=== PATIENT | female | born 1955 ===

== ENCOUNTER 2017-02-01 07:03 | Day surgery (SDC) | payer OTHER ==
[2017-02-01] MEDS ORDERED: Lactated Ringer's 500 ML IV ONE (07:42)
[2017-02-01] MEDS ORDERED: Propofol 10 mg/ml Inj (20 ML) ONE (08:17)
[2017-02-01 08:56] VITALS: TEMP 97
[2017-02-01 09:16] VITALS: BP 110/69; PULSE 53; RESP 16; O2SAT 100
== END 2017-02-01 09:41 | disposition home or self-care (01) ==
LOC: H.ENDO 07:03
PROVIDERS: ATTEND Internal Medicine Gastroenterology
DX: Z12.11 Encounter for screening for malignant neoplasm of colon (principal); I25.10 Atherosclerotic heart disease of native coronary artery without angina pectoris; E78.5 Hyperlipidemia, unspecified; I10 Essential (primary) hypertension; G47.30 Sleep apnea, unspecified; K57.30 Diverticulosis of large intestine without perforation or abscess without bleeding; K64.8 Other hemorrhoids; K62.1 Rectal polyp; R12 Heartburn; K31.9 Disease of stomach and duodenum, unspecified

== ENCOUNTER 2018-06-25 15:04 | Emergency (ER) | payer OTHER ==
--- NOTE | 2018-06-25 17:12 | ED PDOC ---
HPI: General Adult Time Seen by Provider: 06/25/18 17:12 Chief Complaint (Provider): arm pain History Per: Patient Additional Complaint(s): 63 y/o right hand dominant female presents with pain to right arm. Patient was at work when a lamp hit her right upper arm. Patient had mild throbbing pain to affected area and felt slight numbness to right fifth digit which is slowly resolving. Patient denies chest pain, shortness of breath or dyspnea on exertion. She rates pain as a 4 out of 10. PMD: Dr. Love Anderson Past Medical History Reviewed: Historical Data, Nursing Documentation, Vital Signs - Medical History PMH: Arthritis, CAD, HTN, Hypercholesterolemia - Surgical History Surgical History: Coronary Stent, Endoscopy - Family History Family History: States: No Known Family Hx - Living Arrangements Living Arrangements: With Family - Social History Current smoker - smoking cessation education provided: No Alcohol: None Drugs: Denies - Home Medications Home Medications: Ambulatory Orders Medication Instructions Recorded Aspirin [Ecotrin] 1 tab PO DAILY 02/01/17 Atenolol [Tenormin] 1 tab PO DAILY 02/01/17 Atorvastatin [Lipitor] 1 tab PO DAILY 02/01/17 Ezetimibe [Zetia] 1 tab PO DAILY 02/01/17 Valsartan/Hydrochlorothiazide 1 tab PO DAILY 02/01/17 [Diovan Hct 160-12.5 mg Tab] - Allergies Allergies/Adverse Reactions: Allergies Allergy/AdvReac Type Severity Reaction Status Date / Time No Known Allergies Allergy Verified 02/01/17 07:50 Review of Systems ROS Statement: Except As Marked, All Systems Reviewed And Found Negative Musculoskeletal: Positive for: Arm Pain (right) Physical Exam - Reviewed Nursing Documentation Reviewed: Yes Vital Signs Reviewed: Yes - Physical Exam Appears: Positive for: Well, Non-toxic, No Acute Distress Skin: Positive for: Normal Color. Negative for: Rash Eye Exam: Positive for: Normal appearance Neck: Positive for: Normal Cardiovascular/Chest: Positive for: Regular Rate, Rhythm Respiratory: Positive for: Normal Breath Sounds Extremity: Positive for: Other (full rom of right shoulder, elbow and wrist, no ecchymosis noted, full rom all digits of right hand with normal sensation) Neurologic/Psych: Positive for: Alert, phlebotomy technologist II-XII (grossly intact), Oriented, Gait (steady). Negative for: Motor/Sensory Deficits, Aphasia, Facial Droop - ECG O2 Sat by Pulse Oximetry: 98 Pulse Ox Interpretation: Normal Medical Decision Making Medical Decision Makin63 y/o with right arm pain Plan: Pain medicine declined Patient was offered x-ray but she declined. Advised ice, rest, elevation and compression to affected area. Tylenol for pain as needed. PMD and employee health follow-up in 2-3 days. Disposition - Clinical Impression Clinical Impression: Arm contusion - Patient ED Disposition Is Patient to be Admitted: No Counseled Patient/Family Regarding: Diagnosis, Need For Followup - Disposition Referrals: Tobias Anderson MD [Primary Care Provider] - Disposition: Routine/Home Disposition Time: 17:39 Condition: STABLE Additional Instructions: Rest and elevate affected area. Tylenol for pain as needed. Follow up with primary care doctor in 2-3 days. Instructions: Contusion (DC) Forms: [facility] ED School/Work Excuse
[2018-06-25 17:39] VITALS: O2SAT 98
[2018-06-25 17:53] VITALS: BP 153/87; PULSE 58; RESP 16; TEMP 97.4
== END 2018-06-25 17:58 | disposition home or self-care (01) ==
LOC: H.ER 15:04
DX: S40.021A Contusion of right upper arm, initial encounter (principal); W22.8XXA Striking against or struck by other objects, initial encounter; Y99.0 Civilian activity done for income or pay

== ENCOUNTER 2018-09-06 16:42 | Emergency (ER) | payer OTHER ==
[2018-09-06 17:02] VITALS: BP 158/72; PULSE 70; RESP 18; TEMP 98.2; O2SAT 99
[2018-09-06] MEDS ORDERED: Lidocaine 5% Patch TD STA (17:08)
[2018-09-06] MEDS ORDERED: Lidocaine 5% Patch TD ONE (17:23)
--- NOTE | 2018-09-06 17:23 | RAD ---
Date of service: 09/06/2018 PROCEDURE: Radiographs of the Right Shoulder HISTORY: pain COMPARISON: 04/26/2015 FINDINGS: BONES: Normal. No fracture. JOINTS: Preserved glenohumeral relationship, acromioclavicular degenerative change: Mild SOFT TISSUES: Evidence of calcific tendinopathy. OTHER FINDINGS: None. IMPRESSION: No acute findings related to/ accounting for the clinical presentation. Additional benign and/or incidental findings described above.
--- NOTE | 2018-09-06 17:24 | ED PDOC ---
Upper Extremity Pain/Injury Time Seen by Provider: 09/06/18 17:01 Chief Complaint (Nursing): Upper Extremity Problem/Injury Chief Complaint (Provider): Upper Extremity Problem History Per: Patient History/Exam Limitations: no limitations Onset/Duration Of Symptoms: Days (3x days) Current Symptoms Are (Timing): Still Present Severity: Moderate Additional Complaint(s): 63 year old female presents to the ED for an evaluation of right arm pain that started 3x days ago. Patient states that 3x days ago she started having atraumatic right shoulder pain that radiated down her entire arm to her ring and pinky fingers. Patient reports that in June, she had mild trauma to her right arm, but refused XRays. Patient denies having chest pain, weakness, numbness, and shortness of breath. Of note: Patient admits to using Advil last night with some relief. Patient's PCP and employee relations assistant advised her not to take NSAIDs, and she states that she d oesn't take any anticoagulants. PMD: Non provided. Past Medical History Reviewed: Historical Data, Nursing Documentation, Vital Signs Vital Signs: Last Vital Signs Temp 98.2 F 09/06/18 17:01 Pulse 70 09/06/18 17:01 Resp 18 09/06/18 17:01 BP 158/72 H 09/06/18 17:01 Pulse Ox 99 09/06/18 17:01 - Medical History PMH: Arthritis, CAD, HTN, Hypercholesterolemia - Surgical History Surgical History: Coronary Stent, Endoscopy - Family History Family History: States: No Known Family Hx - Social History Alcohol: None Drugs: Denies - Home Medications Home Medications: Ambulatory Orders Medication Instructions Recorded Aspirin [Ecotrin] 1 tab PO DAILY 02/01/17 Atenolol [Tenormin] 1 tab PO DAILY 02/01/17 Atorvastatin [Lipitor] 1 tab PO DAILY 02/01/17 Ezetimibe [Zetia] 1 tab PO DAILY 02/01/17 Valsartan/Hydrochlorothiazide 1 tab PO DAILY 02/01/17 [Diovan Hct 160-12.5 mg Tab] Lidocaine 5% [Lidoderm] 1 ea TD DAILY PRN #10 patch 09/06/18 predniSONE [Prednisone] 20 mg PO DAILY #4 tab 09/06/18 - Allergies Allergies/Adverse Reactions: Allergies Allergy/AdvReac Type Severity Reaction Status Date / Time tape Allergy RASH Uncoded 09/06/18 17:03 Review of Systems ROS Statement: Except As Marked, All Systems Reviewed And Found Negative Cardiovascular: Negative for: Chest Pain Respiratory: Negative for: Shortness of Breath Musculoskeletal: Positive for: Arm Pain (right shoulder pain, radiates down arm to ring and pinky fingers) Neurological: Negative for: Weakness, Numbness Physical Exam - Reviewed Nursing Documentation Reviewed: Yes Vital Signs Reviewed: Yes - Physical Exam Appears: Positive for: Non-toxic, In Acute Distress (mild painful distress) Head Exam: Positive for: ATRAUMATIC, NORMOCEPHALIC Skin: Positive for: Normal Color, Warm, Dry Pulses-Radial (L): 2+ Pulses-Radial (R): 2+ Extremity: Positive for: Tenderness (moderate pinpoint right shoulder tenderness without deformity. equal meteorological equipment repairer strength bilaterally. capillary refill <2 on fingers) Neurologic/Psych: Positive for: Alert, Oriented (3x) - ECG O2 Sat by Pulse Oximetry: 99 (RA) Pulse Ox Interpretation: Normal - Radiology X-Ray: Viewed By Me, Read By Radiologist (see MDM) Medical Decision Making Medical Decision Makin:01 Initial impression: 63 year old female with right shoulder pain. Initial plan: - XRay shoulder right - lidoderm 1 ea TD - prednisone tab 20 mg PO - reevaluation 17:19 Xray shoulder right read and reviewed by radiologist FINDINGS: BONES: Normal. No fracture. JOINTS: Preserved glenohumeral relationship, acromioclavicular degenerative change: Mild SOFT TISSUES: Evidence of calcific tendinopathy. OTHER FINDINGS: None. IMPRESSION: No acute findings related to/ accounting for the clinical presentation. Additional benign and/or incidental findings described above. Voltaren and Prednisone Rx electronically sent to [facility]. Due to pt's CAD Voltaren was cancelled and Lidoderm patch was electronically sent in its place. Pt. was informed of this change and PA spoke with Clay, from [facility], and Voltaren gel Rx was cancelled. Scribe Attestation: Documented by Sarahi Lloyd, acting as a scribe for Rehan Negron Provider Scribe Attestation: All medical record entries made by the Scribe were at my direction and personally dictated by me. I have reviewed the chart and agree that the record accurately reflects my personal performance of the history, physical exam, medical decision making, and the department course for this patient. I have also personally directed, reviewed, and agree with the discharge instructions and disposition. Disposition - Clinical Impression Clinical Impression: Shoulder tendonitis - Disposition Referrals: [facility] [Outside] Harish Watts MD [Staff Provider] - Disposition Time: 17:26 Condition: STABLE Additional Instructions: FOLLOW UP WITH ORTHOPEDIST FOR FURTHER EVALUATION RETURN TO ED IMMEDIATELY IF SYMPTOMS WORSEN GÓMEZ JACOB, thank you for letting us take care of you today. Your provider was Geoff Chamorro MD and you were treated for RT ARM/SHOULDER PAIN. The emergency medical care you received today was directed at your acute symptoms. If you were prescribed any medication, please fill it and take as directed. It may take several days for your symptoms to resolve. Return to the Emergency Department if your symptoms worsen, do not improve, or if you have any other problems. Please contact your doctor or call one of the physicians/clinics you have been referred to that are listed on the Patient Visit Information form that is included in your discharge packet. Bring any paperwork you were given at discharge with you along with any medications you are taking to your follow up visit. Our treatment cannot replace ongoing medical care by a primary care provider outside of the emergency department. Thank you for allowing the [facility] team to be part of your care today. If you had an X-Ray or CT scan: A Radiologist will review the ED reading if any change in treatment is needed we will contact you. If you had a blood, urine, or wound culture: It will take several days for the results, if any change in treatment is needed we will contact you. If you had an STI test: It will take 48 hours for the results. Please call after 1 week if you have not heard back. Prescriptions: Lidocaine 5% [Lidoderm] 1 ea TD DAILY PRN #10 patch PRN Reason: Pain predniSONE [Prednisone] 20 mg PO DAILY #4 tab Forms: [facility] ([place]), [facility] ED School/Work Excuse
== END 2018-09-06 17:49 | disposition home or self-care (01) ==
LOC: H.ER 16:42
DX: M75.80 Other shoulder lesions, unspecified shoulder (principal); E78.00 Pure hypercholesterolemia, unspecified; I10 Essential (primary) hypertension; I25.10 Atherosclerotic heart disease of native coronary artery without angina pectoris; Z95.5 Presence of coronary angioplasty implant and graft